=== PATIENT | male | born 1990 | race Caucasian/White ===

== ENCOUNTER → 2017-11-14 | Outpatient (CLI) | payer MEDICAID ==
[2016-08-13 11:25] VITALS: BMI 25.8
[~2017-11-14] MED LIST: CLAR-13 PO; DOCU-416 PO; FLUO-202 PO; LAMO25TA64 PO; LOR5/325 PO; MELA10CA PO; MULT-865 PO; PANT40TA65 PO; TRAZ150T8 PO
--- NOTE | 2017-11-14 10:39 | EKG ---
FACILITY: [facility] [place] PATIENT NAME: PANCHITO REHMAN : [id number] MR: [id number] V: [id number] EXAM DATE: ORDERING PHYSICIAN: CL RIVAS TECHNOLOGIST: KELLIE Test Reason : CHEST PAIN Blood Pressure : / mmHG Vent. Rate : 077 BPM Atrial Rate : 077 BPM P-R Int : 130 ms QRS Dur : 142 ms QT Int : 402 ms P-R-T Axes : 028 014 -09 degrees QTc Int : 454 ms Normal sinus rhythm Right bundle branch block Voltage criteria for left ventricular hypertrophy T wave abnormality, consider inferior ischemia Abnormal ECG No previous ECGs available Referred By: ROB Confirmed By:
== END ==
LOC: RESP 10:03
PROVIDERS: ATTEND Internal Medicine
DX: Z02.9 Encounter for administrative examinations, unspecified (principal)

== ENCOUNTER → 2018-01-10 | Outpatient (REF) | payer MEDICAID ==
[2016-08-13 11:25] VITALS: BMI 25.8
[2018-01-10 16:46] LABS: PLATELET COUNT, AUTOMATED 271 K/uL (150-450)
== END ==
PROVIDERS: ATTEND Physician Assistant Medical
DX: R00.2 Palpitations (principal)
CPT/HCPCS: 82040; 82247; 82310; 82374; 82435; 82565; 82947; 84075; 84132; 84155; 84295; 84443; 84450; 84460; 84484; 84520; 85025

== ENCOUNTER 2018-03-07 17:37 | Emergency (ER) | payer MEDICAID ==
[2016-08-13 11:25] VITALS: Wt 93.0 kg
--- NOTE | 2018-03-07 18:05 | ER Report ---
History and Physical Time Seen By MD: 18:06 Hx. of Stated Complaint: PATIENT STATES THAT 3 DAY WENT TANNING AND WAS BURNT; PATIENT WAS PUTTING ON ALOE GEL ON WITH LIDOCAINE AND IT BURNED; TODAY PATIENT SAID THAT HE PUT ON THE BENADRYL LOTION ON AND IT STARTED BURNING WELL HPI/ROS CHIEF COMPLAINT: Sunburn HISTORY OF PRESENT ILLNESS: 27-year-old male patient presents to emergency room with complaint of a sunburn. Patient states that he was in a tanning bed approximate 3 days ago and he was in there naked. He states that he developed a sunburn to the skin that is up frequently in the sun. He states that it has been very itchy for the last few days. He did try some aloe vera lotion with lidocaine which seemed to make it burn. He also states that he tried some Benadryl cream. States initially this seemed to help and the second time it burned. Patient states the itching is the biggest problem. He states he is having hard time concentrating or sleeping because the itching. Allergies: Coded Allergies: Penicillins (Verified Allergy, Unknown, 06/03/17) amoxicillin (Verified Allergy, Unknown, 06/03/17) clavulanic acid (Verified Allergy, Unknown, 06/03/17) Home Meds Active Scripts Hydroxyzine Hcl (HYDROXYZINE HCL) 25 Mg Tablet, 25 MG PO 3-4XD for 7 Days, #28 TAB Prov:NASRIN RUANO [facility] 03/07/18 Reported Medications Trazodone Hcl (TRAZODONE HCL) 50 Mg Tablet, 50 MG PO PRN 03/07/18 Discontinued Scripts Pantoprazole Sodium (PANTOPRAZOLE SODIUM) 40 Mg Tablet.dr, 40 MG PO QDAY, #30 TAB.SR 6 Refills Prov:CL RIVAS MD 11/14/17 Past Medical/Surgical History Patient has a past medical history of murmur, alcohol use, depression, anxiety. Patient has surgical history of cardiac surgery as a child, hernia repair. Patient has a family medical history of psychiatric problems. Reviewed Nurses Notes: Yes Hx Smoking: No Smoking Status: Never Smoker Exposure to Second Hand Smoke?: No Hx Substance Use Disorder: No Hx Alcohol Use: Yes (OCC) Constitutional Vital Sign - Last 24 Hours 03/07/18 03/07/18 17:56 18:50 Temp 98.7 Pulse 82 90 Resp 18 18 B/P (MAP) 122/86 122/86 (98) Pulse Ox 92 98 O2 Delivery Room Air Room Air Physical Exam General appearance: Alert no distress. Respiratory: Chest is non tender, lungs are clear to auscultation. Cardiac: Regular rate and rhythm. Skin: Patient has sunburn across the torso, both ventral and dorsal, patient also has some sunburns on the upper legs. Patient has no joseph on the lower legs , lower arms face or head. DIFFERENTIAL DIAGNOSIS: After history and physical exam differential diagnosis was considered for sunburn Medical Decision Making ED Course/Re-evaluation ED Course Patient was admitted and examined, history of physical or pain. Differential diagnoses were considered. On examination patient has partial thickness sunburn to the torso both ventral and dorsal, as well as the upper legs. There are no blisters noted. Patient states that he has significant improvement with warm moist washcloth applied to his back. Due to the itching being the biggest concern we will go ahead and place him on hydroxyzine. He is to make sure that he applies sunscreen. He is to avoid going to attending bed for the next several days. I anticipate that the itching will last for just 2-3 more days and then will resolve. He is return to emergency room if condition worsens. He is to follow-up with his primary care provider early next week. Decision to Disposition Date: Mar 07, 2018 Decision to Disposition Time: 18:50 Depart Departure Latest Vital Signs Vital Signs Date Time Temp Pulse Resp B/P (MAP) Pulse Ox O2 Delivery O2 Flow Rate FiO2 03/07/18 18:50 90 18 122/86 (98) 98 Room Air 03/07/18 17:56 98.7 Impression: Primary Impression: Sunburn due to tanning bed Additional Impression: Generalized pruritus Condition: Improved Disposition: HOME OR SELF-CARE Referrals: CL RIVAS MD (PCP) New Scripts Hydroxyzine Hcl (HYDROXYZINE HCL) 25 Mg Tablet 25 MG PO 3-4XD for 7 Days, #28 TAB Prov: NASRIN RUANO LAIL[facility] 03/07/18 Patient Instructions: Sunburn (ED) Additional Instructions: Take hydroxyzine as need for the itching 3 to 4 times a day. Continue to use home remedies. Return to the emergency department if your condition worsens. Follow up with your primary care provider if the itching continues. Problem Qualifiers NASRIN RUANO Mar 07, 2018 18:05
[2018-03-07] MEDS ORDERED: TRAZ50TA34 PO (18:07)
[2018-03-07] MEDS ORDERED: hydrOXYzine 25 MG TAB PO ONE (18:35)
[2018-03-07] MEDS ORDERED: HYDR-4225 PO (18:43)
[2018-03-07 18:50] VITALS: BP 122/86
== END 2018-03-07 19:10 | disposition home or self-care (01) ==
LOC: ER 17:58
DX: L55.9 Sunburn, unspecified (principal); L29.9 Pruritus, unspecified
CPT/HCPCS: 99283